=== PATIENT | female | born 1970 ===

== ENCOUNTER 2020-12-13 06:57 | Outpatient (CLI) | payer BC ==
[~2020-12-13] VITALS: Ht 167.6 cm; Wt 155.2 kg
[2020-12-13] VITALS (17 sets, daily range): BP systolic 134–171; BP diastolic 82–97; PULSE 57–71
[2020-12-13] MEDS ORDERED: 00186-0370-20 IH (07:15)
[2020-12-13] MEDS ORDERED: TENORMIN 5050 MG/TAB PO (07:16)
[2020-12-13] MEDS ORDERED: WELLBUTRIN SR150 M1 PO (07:16)
[2020-12-13] MEDS ORDERED: PROAIR HFA0.09 MG/AC IH (07:18)
[2020-12-13] MEDS ORDERED: NORVASC 5MG5 MG/TAB PO (07:19)
[2020-12-13] MEDS ORDERED: ZOLOFT 100MG100 MG PO (07:19)
[2020-12-13] MEDS ORDERED: LASIX 20MG TABL20 MG PO (07:20)
[2020-12-13] MEDS ORDERED: K-DUR 10 MEQ T10 MEQ PO (07:21)
[2020-12-13] MEDS ORDERED: SINGULAIR 110 MG/TAB PO (07:22)
[2020-12-13] MEDS ORDERED: ZAROXOLYN 2.52.5 MG PO (07:22)
[2020-12-13] MEDS ORDERED: PRIL40 PO (07:23)
--- NOTE | 2020-12-13 12:05 | NUR ---
Pt assisted out to 's car by wheelchair. IV was DC'd with catheter intact. Bandaid remains clean, dry and intact. She expresses understanding of DC instruction, including return precautions and driving restrictions.
== END 2020-12-13 12:23 | disposition home or self-care (01) ==
LOC: COL.RAD 06:57
DX: R91.8 Other nonspecific abnormal finding of lung field (principal)
CPT/HCPCS: J3010